=== PATIENT | female | born 1975 | race Caucasian/White ===

== ENCOUNTER 2021-06-21 06:01 | Day surgery (SDC) | payer OTHER ==
[~2021-06-21 06:01] MED LIST: NASONEX17 GM; NEXIUM40 M1 PO; PEPCID AC10 MG PO; PROAIR HFA8.5 GM IH; SINGULAIR10 MG PO; SYMBICORT 16010.2 GM IH; ZOFRAN8 MG PO; ZOVIRAX400 MG PO
== END 2021-06-21 16:55 | disposition home or self-care (01) ==
LOC: CIR.AMB 06:01
PROVIDERS: ATTEND Obstetrics & Gynecology Gynecology
DX: N83.12 Corpus luteum cyst of left ovary (principal); Z20.822 Contact with and (suspected) exposure to COVID-19